=== PATIENT | male | born 1985 | race Caucasian/White ===

== ENCOUNTER 2017-02-15 09:00 | Emergency (ER) | payer SELFPAY ==
[2017-02-15 10:18] VITALS: BP 144/96
== END 2017-02-15 10:18 | disposition home or self-care (01) ==
LOC: ED 09:00
DX: T63.441A Toxic effect of venom of bees, accidental (unintentional), initial encounter (principal); F17.210 Nicotine dependence, cigarettes, uncomplicated; Y92.89 Other specified places as the place of occurrence of the external cause; Z71.6 Tobacco abuse counseling
CPT/HCPCS: 99406; J7512